=== PATIENT | female | born 1970 | race American Indian/Alaskan Native ===

== ENCOUNTER 2017-07-20 06:12 | Day surgery (SDC) | payer OTHER ==
[~2017-07-20 06:12] MED LIST: MARCAINE 0.25% INFILTRATI ONE; WATER FOR IRRIG STERILE IR ONE; XYLOCAINE 1% 20 mL INFILTRATI ONE
[2017-07-20] MEDS ORDERED: ANCEF/STERILE WATER 2 GM/20 ML IV NR (06:37)
[2017-07-20] MEDS ORDERED: NACL BACTERIOSTATIC INFILTRATI ONE (07:05)
--- NOTE | 2017-07-20 07:30 | Anesthesia Consultation ---
Anesthesia Consult and Med Hx Date of service: 07/20/17 - Airway Anesthetic Teeth Evaluation: Good ROM Head & Neck: Adequate Mental/Hyoid Distance: Adequate Mallampati Class: Class II Intubation Access Assessment: Probably Good - Pulmonary Exam CTA: Yes - Cardiac Exam Cardiac Exam: RRR - Pre-Operative Health Status ASA Pre-Surgery Classification: ASA2 Proposed Anesthetic Plan: General - Pulmonary Hx Smoking: No - Cardiovascular System Hx Hypertension: No - Central Nervous System Hx Psychiatric Problems: No - Other Systems Hx Alcohol Use: Yes (SOCIALLY) Hx Substance Use: No Hx Cancer: No Hx Obesity: Yes
--- NOTE | 2017-07-20 07:30 | Anesthesia Day of Surgery ---
Anesthesia Day of Surgery - Day of Surgery Patient Examined: Yes Patient H&P Reviewed: Yes Patient is NPO: Yes
[2017-07-20] MEDS ORDERED: DILAUDID IV PRN (07:31)
[2017-07-20] MEDS ORDERED: PERCOCET 5/325 PO PRN (07:31)
[2017-07-20] MEDS ORDERED: LACTATED RINGERS 1,000 ML IV SCH (08:00)
[2017-07-20] MEDS ORDERED: DECADRON ONE (08:00)
[2017-07-20] MEDS ORDERED: ZOFRAN ONE (08:00)
[2017-07-20] MEDS ORDERED: PEPCID PO NR (08:00)
[2017-07-20] MEDS ORDERED: VERSED IV NR (08:00)
[2017-07-20] MEDS ORDERED: XYLOCAINE 1% 20 mL ONE (08:09)
[2017-07-20] MEDS ORDERED: XYLOCAINE 1% 20 mL INFILTRATI NR (08:12)
[2017-07-20] MEDS ORDERED: SUBLIMAZE ONE (08:16)
[2017-07-20] MEDS ORDERED: DIPRIVAN 10 MG/ML IV ONE (08:16)
[2017-07-20] MEDS ORDERED: XYLOCAINE MPF 2% ONE (08:16)
[2017-07-20] MEDS ORDERED: MARCAINE 0.5% 30 ML INFILTRATI ONE (08:40)
[2017-07-20] MEDS ORDERED: MARCAINE 0.25% INFILTRATI ONE (08:52)
[2017-07-20] MEDS ORDERED: XYLOCAINE 1% 20 mL INFILTRATI ONE (08:52)
[2017-07-20] MEDS ORDERED: WATER FOR IRRIG STERILE IR ONE (08:52)
--- NOTE | 2017-07-20 09:54 | Mammography Report ---
NEEDLE LOCALIZATION AND HOOKWIRE PLACEMENT LEFT BREAST:07/20/17 CLINICAL: Left breast cancer. COMPARISON: None. FINDINGS: Using mammographic guidance, 1% lidocaine local anesthesia and sterile technique, a 5.0-cm Adorno hookwire was placed from a medial approach to localize a mass with a biopsy clip. Two views demonstrated satisfactory targeting. The hookwire was deployed and an additional CC image was obtained. The patient tolerated the procedure well and there were no apparent complications. IMPRESSION: Uncomplicated hookwire placement left breast.
--- NOTE | 2017-07-20 10:18 | Short Stay Summary ---
Short Stay Documentation Date of service: 07/20/17 - History H&P: obtained from office - Allergies and Medications Current Medications: Allergies ibuprofen [From Motrin] Allergy (Verified 07/19/17 12:26) Nausea Home Medications Medication Instructions Recorded Confirmed Last Taken Type diphenhydrAMINE [Benadryl CAP] 25 mg PO Q8HR PRN 07/19/17 07/20/17 07/18/17 History HYDROcodone/APAP 5-325 [Mauk 1 each PO Q6HR PRN #25 tablet 07/20/17 Unknown Rx 5/325] Active Medications Cefazolin Sodium (Ancef/Sterile Water 2 Gm/20 Ml) 2 gm IV PREOP NR Stop: 07/20/17 23:59 Famotidine (Pepcid) 20 mg PO PREOP NR Stop: 07/20/17 11:00 Last Admin: 07/20/17 07:50 Dose: 20 mg Hydromorphone HCl (Dilaudid) 0.5 mg IV Q10MIN PRN PRN Reason: Pain , Severe (7-10) Stop: 07/20/17 13:00 Lactated Ringer's (Lactated Ringers) 1,000 mls @ 100 mls/hr IV DIRECT PATSY Last Admin: 07/20/17 08:50 Dose: 100 mls/hr Midazolam HCl (Versed) 2 mg IV PREOP NR Stop: 07/20/17 23:59 Last Admin: 07/20/17 08:50 Dose: 2 mg - Brief post op/procedure progress note Date of procedure: 07/20/17 Pre-op diagnosis: Left breast fibroepithelia lesion Post-op diagnosis: same Procedure: Left needle localization excisional biopsy Anesthesia: GETA Findings: Left wire and clip present within radiograph specimen Surgeon: MINH SIERRA Diffusion Operator: JUDY POLK Estimated blood loss: minimal Pathology: list (left breast excisional biopsy) Specimen disposition: to lab Condition: stable - Disposition Condition at discharge: Good Disposition: [id number] TO HOME OR SELFCARE Short Stay Discharge Plan Activity: other (no heavy lifting) Diet: regular Wound: other (keep incision clean and dry; may shower in 24 hours; no baths, pools or lakes; do not rub or scrub incision) Follow up with: RADHA ARMENTA MD [Primary Care Provider] - 7 Days MINH SIERRA MD [Staff Physician] - 7 Days Prescriptions: HYDROcodone/APAP 5-325 [Mauk 5/325] 1 each PO Q6HR PRN #25 tablet PRN Reason: Pain
--- NOTE | 2017-07-20 10:23 | Operative Report ---
Operative Report Operative Report: Date of Service: July 20, 2017 Preoperative diagnosis: Left breast fibroepithelial lesion Postoperative diagnosis: Same Procedure: Left needle localization excisional biopsy Surgeon: Pia Cuoghlin MD Spanish Medical Interpreter: Sana Valencia DO Anesthesia: General Findings: Left wire and clip present within radiograph specimen Complications: None EBL: Minimal Disposition: PACU in good condition Procedure in detail: This is a 47-year-old lady with recent left breast biopsy at the 9:30 position 9 cm from the nipple with findings of a fibroepithelial lesion. Recommendations were to proceed with an excisional biopsy to rule out phyllodes lesion. Patient wished to proceed with the above procedure. Procedure in detail: The patient was taken to radiology for wire placement for localization of area of concern. Patient was then taken to the operating room. Gen. anesthesia was administered. The left breast was prepped and draped in the normal sterile operative fashion. The wire was identified. Timeout was performed. Medial breast incision was made around 8:30 position with a 15 blade knife and dissection taken down to subcutaneous tissues. First began raising of the medial flap with removal of the wire from the skin, followed by raising of the lateral flap, superior flap and inferior flap. The breast area of concern was appropriately removed posteriorly anterior to the pectoralis muscle with the aid of the bovie cautery. The wire was not encountered. Specimen was marked and then sent to pathology and radiology; radiograph specimen with wire and clip present. Breast cavity was irrigated and hemostasis was obtained. The breast cavity was anesthetized with 1% lidocaine mixed with quarter percent Marcaine. The subcutaneous tissues were approximated and closed using interrupted 3-0 Vicryl followed by a running 4-0 Monocryl and skin affix. The patient tolerated surgery very well and she was awaken from anesthesia without any complication and transported to PACU in good condition.
--- NOTE | 2017-07-20 10:31 | Mammography Report ---
SPECIMEN RADIOGRAPH LEFT BREAST: 07/20/17 06:12:00 CLINICAL: Left breast cancer. FINDINGS: The targeted mass with a localizer clip and a hookwire are identified within the specimen. IMPRESSION: Excision of the targeted lesion.
[2017-07-20] MEDS ORDERED: NORCO 5/325 PO PRN (11:14)
--- NOTE | 2017-07-20 11:59 | Post Anesthesia Evaluation ---
- Post Anesthesia Evaluation Patient Participated: Yes Airway Patent: Yes Stable Respiratory Function: Yes Nausea/Vomiting: No Temp > 96.8F: Yes Pain Manageable: Yes Adequeate Hydration: Yes Anesthesia Complications: No
[2017-07-20 13:14] VITALS: BP 138/78
== END 2017-07-20 13:03 | disposition home or self-care (01) ==
LOC: OR 06:12
PROVIDERS: ATTEND Surgery
DX: N60.12 Diffuse cystic mastopathy of left breast (principal); N60.22 Fibroadenosis of left breast; E66.9 Obesity, unspecified; Z68.30 Body mass index [BMI] 30.0-30.9, adult; Z88.8 Allergy status to other drugs, medicaments and biological substances; Z98.890 Other specified postprocedural states
CPT/HCPCS: 19125; 19281; 76098; 88307; J0690; J1100; J2250; J2405; J2704; J3010; J7120

== ENCOUNTER 2017-10-25 10:15 | Outpatient (CLI) | payer OTHER ==
--- NOTE | 2017-10-27 13:06 | Mammography Report ---
BILATERAL DIGITAL SCREENING MAMMOGRAM with CAD: 10/25/17 10:15:00 CLINICAL: Status post left benign surgical excision 07/20/17. COMPARISON:None available. However, previous studies have apparently been done at [facility] and [facility]. FINDINGS: The breasts are mostly fatty with a few bilateral scattered fibroglandular densities.Left lower inner postsurgical benign scar. A left upper outer parenchymal asymmetry and a right upper outer parenchymal asymmetry require comparison with prior mammograms or additional imaging. IMPRESSION: Bilateral asymmetries requiring further evaluation. BI-RADS CATEGORY: 0--Needs Additional Evaluation RECOMMENDATION: We'll we will attempt to obtain prior mammograms for comparison. If we did not obtain comparisons, recommend recall for bilateral spot compression views and bilateral breast ultrasound if needed. ACR BI-RADS MAMMOGRAPHIC CODES: 0 = Needs additional imaging evaluation; 1 = Negative; 2 = Benign; 3 = Probably benign; 4 = Suspicious; 5 = Malignant; 6 = Known biopsy-proven malignancy COMMENT: 1. Dense breast tissue, i.e., adenosis, fibrocystic changes, etc., may obscure an underlying neoplasm. 2. Approximately 10% of cancers are not detected with mammography. 3. A negative mammography report should not delay biopsy if a clinically suspicious mass is present. COMMENT: Patient follow-up letters are generated by our [employer] application.
== END 2017-10-25 10:16 | disposition home or self-care (01) ==
LOC: SPVWC 10:15
PROVIDERS: ATTEND Surgery
DX: Z12.31 Encounter for screening mammogram for malignant neoplasm of breast (principal)
CPT/HCPCS: 77067

== ENCOUNTER 2018-10-31 13:39 | Outpatient (CLI) | payer OTHER ==
--- NOTE | 2018-10-31 14:24 | Mammography Report ---
BILATERAL DIGITAL SCREENING MAMMOGRAM with CAD: 10/31/18 13:39:00 CLINICAL: Routine screening.History of a left benign surgical excision 07/20/17 COMPARISON:10/25/17 FINDINGS: The breasts are almost entirely fatty.Left and are benign postsurgical scar. No mass, architectural distortion or suspicious calcifications. IMPRESSION: No mammographic evidence of malignancy. BI-RADS CATEGORY: 2 -- Benign RECOMMENDATION: Routine mammographic screening in one year. COMMENT: Patient follow-up letters are generated by our [employer] application.
== END 2018-10-31 13:40 | disposition home or self-care (01) ==
LOC: SPVWC 13:39
PROVIDERS: ATTEND Surgery
DX: Z12.31 Encounter for screening mammogram for malignant neoplasm of breast (principal); E66.9 Obesity, unspecified
CPT/HCPCS: 77067